=== PATIENT | female | born 2000 | race Caucasian/White ===

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

== ENCOUNTER 2025-06-22 03:12 | Emergency (ER) | payer MEDICAID ==
[~2025-06-22] VITALS: Ht 142.2 cm; Wt 68.2 kg
[~2025-06-22 03:12] MED LIST: ONDA4TAB6 PO
--- NOTE | 2025-06-22 03:29 | Physician Documentation ---
History of Present Illness ~ Chief Complaint: Abdominal Pain w/vomiting Stated Complaint: ABDOMINAL PAIN,VOMITING Time Seen by MD: 03:29 [facility] Patient presents to the emergency room with nausea vomiting diarrhea and abdominal pain. Two episodes of diarrhea. Symptoms began this evening. She has taken nothing for her symptoms. History of reflux. Patient's pain that has in the epigastric area. Medication Reconciliation Allergies: Coded Allergies: No Known Allergies (Unverified , 06/22/25) Scheduled Ondansetron Hcl (Zofran), 1 TAB PO Q6H PRN Past Medical History Past Medical History: MRSA Abscess Past Surgical History: noncontributory Alcohol Use: None Drug Use: none Lives with: Family Lives In: Home Occupation: employed Review of Systems ROS All review of systems negative except as per HPI Physical Exam Vital Signs: Temperature: 98.7, Source: Temporal, Heart Rate: 71, Respiratory Rate: 16, BP: 132/95, Pulse Oximetry: 100, Weight: 68.180 Oxygen Flow Rate: 0 Physical Exam General: Patient is awake, alert, oriented x4 in mild distress Head: Normocephalic and atraumatic. Eyes: Conjunctival normal. EOMI. PERRL. ENT: Mucous membranes moist. Neck: Supple, trachea is midline. Chest: Clear to auscultation bilaterally without rales, rhonchi, or wheezes. There is no accessory muscle use or retractions. Cardiac: RRR without murmurs, gallops, or rubs. Abd: Soft, nondistended, nontender, with normoactive bowel sounds. No guarding, rebound, or rigidity. Progress Results/Orders Results/Orders Orders - SEAN LOPEZ MD Urinalysis, Cult If Indicated (06/22/25 03:21) Completed Orders - SEAN LOPEZ MD Hcg, Ur Ql (06/22/25 03:21) Cbc/Diff (06/22/25 03:21) BMP (06/22/25 03:21) Lipase (06/22/25 03:21) CMP (06/22/25 03:21) Ondansetron Inj. (Zofran 4mg/2ml Vial) (06/22/25 03:35) Normal Saline 1000ml (0.9% Sodium Chlori (06/22/25 03:35) Ketorolac Trometh 15mg/Ml Vial (Toradol (06/22/25 03:35) Famotidine/Pf Iv Inj (Pepcid Iv Inj) (06/22/25 03:35) Pantoprazole 40mg Iv (Protonix 40mg Iv) (06/22/25 03:35) Procalcitonin (06/22/25 03:32) Medications Received in ER Medications (Trade) Dose Ordered Sig/Taylor Route PRN Reason Start Time Stop Time Status Last Admin Dose Admin (Zofran 4mg/2ml vial) 8 mg ONCE ONCE IV 06/22/25 03:35 06/22/25 03:36 DC 06/22/25 03:50 8 MG Sodium Chloride 1,000 ml @ 1,000 mls/hr ONCE ONCE IV 06/22/25 03:35 06/22/25 04:34 DC 06/22/25 03:50 1,000 MLS/HR (Toradol injection) 15 mg ONCE ONCE IV 06/22/25 03:35 06/22/25 03:36 DC 06/22/25 03:50 15 MG (Pepcid IV inj) 20 mg ONCE ONCE IV 06/22/25 03:35 06/22/25 03:36 DC 06/22/25 03:50 20 MG (Protonix 40mg IV) 40 mg ONCE ONCE IV 06/22/25 03:35 06/22/25 03:36 DC 06/22/25 03:50 40 MG Vital Signs 06/22/25 06/22/25 06/22/25 06/22/25 03:16 03:50 04:09 04:11 Temp 98.7 98.7 Pulse 71 59 Resp 16 16 16 B/P (MAP) 132/95 125/78 (94) Pulse Ox 100 100 O2 Flow Rate 0 0 06/22/25 04:24 Resp 16 Laboratory Tests Test 06/22/25 03:40 White Blood Count 9.6 Red Blood Count 4.79 Hemoglobin 14.0 Hematocrit 40.5 Mean Corpuscular Volume 84.6 Mean Corpuscular Hemoglobin 29.1 Mean Corpuscular Hemoglobin Concent 34.4 Red Cell Distribution Width 12.0 Platelet Count 281 Mean Platelet Volume 8.0 Neutrophils (%) (Auto) 79.3 H Lymphocytes (%) (Auto) 15.6 L Monocytes (%) (Auto) 4.7 Eosinophils (%) (Auto) 0.1 Basophils (%) (Auto) 0.3 Neutrophils # (Auto) 7.6 Lymphocytes # (Auto) 1.5 Monocytes # (Auto) 0.5 Eosinophils # (Auto) 0.0 Basophils # (Auto) 0.0 CBC Comment Urine HCG, Qualitative Negative Sodium Level 137 Potassium Level 3.9 Chloride Level 102 Carbon Dioxide Level 25.5 Anion Gap 10 Blood Urea Nitrogen 19 H Creatinine 0.58 Estimated GFR/1.73 m2 > 90 BUN/Creatinine Ratio 32.8 H Glucose Level 132 H Calcium Level 9.2 Total Bilirubin 0.4 Aspartate Amino Transf (AST/SGOT) 17 Alanine Aminotransferase (ALT/SGPT) 32 Alkaline Phosphatase 114 Total Protein 8.1 Albumin 4.1 Globulin 4.0 Albumin/Globulin Ratio 1.0 L Lipase 17 Procalcitonin < 0.05 Chemistry Comments Medical Decision Making Additional information obtaine: old records Findings Patient presents to the emergency room for evaluations vomiting and abdominal pain as per HPI. Differentials include but are not limited to viral syndrome, gastroenteritis, gastritis, cholecystitis, pancreatitis, intra-abdominal infection therefore emergent labs ordered. Patient has responded well to treatment and feels much better. Labs reassuring. We will treat her for gastritis. I do not feel patient requires CT scan or ultrasound as she is pain- free and I believe radiation exposure risk outweighs any benefit at this juncture. ER precautions discussed. Diff Dx GI Bleed:Consideration: Include: Blood loss anemia Diff Dx Pain:Considerations: Include: -Inevitable Diff Dx N/V/D:Considerations: Include: Dehydration Diff Dx Rectal:Considerations: Include: Fistula Departure Disposition: HOME / SELF CARE / HOMELESS Impression: Primary Impression: Acute gastritis Condition: Improved Discharge Instructions: Gastritis, Adult Referrals: NO PRIMARY CARE PROVIDER (PCP) Prescriptions Famotidine (Pepcid) 20 Mg Tablet 1 TAB PO Q12H for Reflux for 30 Days, #60 TAB 0 Refills Prov: SEAN LOPEZ MD 06/22/25 Ondansetron 8mg ODT (Ondansetron Odt) 8 Mg Tab.rapdis 1 TAB PO Q6H for nausea/vomiting for 3 Days, #12 TAB 0 Refills Prov: SEAN LOPEZ MD 06/22/25 Signature Scribe Signature: No scribe Attestation: The note accurately reflects work and decisions made by me.Sean Lopez MD 06/22/25 04:41 SEAN LOPEZ MD Jun 22, 2025 03:29
[2025-06-22] MEDS: ketorolac trometh 15mg/ml vial 15 MG/ML ML IV ONE (03:50)
[2025-06-22] MEDS: ondansetron/PF 4mg/2ml inj IV ONE (03:50)
[2025-06-22] MEDS: famotidine/PF 10 mg/ml inj IV ONE (03:50)
[2025-06-22] MEDS: normal saline 1000ml 1,000 ML IV ONE (03:50)
[2025-06-22 04:01] LABS: MEAN PLATELET VOLUME 8.0 FL (7.4-10.4); RED CELL DISTRIBUTION WIDTH 12.0 % (11.5-14.5); URINE HCG NEGATIVE (NEG)
[2025-06-22 04:12] LABS: CREATININE 0.58 MG/DL (0.40-0.90); TOTAL CARBON DIOXIDE 25.5 MMOL/L (24-32); eCRCL 87 ML/MIN; eGFR > 90 ML/MIN
[2025-06-22] MEDS ORDERED: FAMO-129 PO (04:41)
[2025-06-22] MEDS ORDERED: ONDA-245 PO (04:41)
[2025-06-22 05:01] VITALS: BP 115/77; PULSE 75; RESP 16; TEMP 98.7; O2SAT 100
[2025-06-22] MEDS ORDERED: MAG355OR18 PO (16:44)
[2025-06-22] MEDS ORDERED: SUCR1TAB PO (16:44)
== END 2025-06-22 05:02 | disposition home or self-care (01) ==
LOC: ER 03:12
DX: K29.00 Acute gastritis without bleeding (principal); Z86.14 Personal history of Methicillin resistant Staphylococcus aureus infection; Z79.899 Other long term (current) drug therapy
CPT/HCPCS: 36415; 80053; 81025; 83690; 84145; 85025; 96365; 96375; 99284; J1885; J2405; J2470; J3490; J7030

== ENCOUNTER 2025-06-22 13:38 | Emergency (ER) | payer MEDICAID ==
[~2025-06-22] VITALS: Ht 142.2 cm; Wt 68.2 kg
[~2025-06-22 13:38] MED LIST changes: +FAMO-129 PO; +ONDA-245 PO
[2025-06-22 14:05] VITALS: BP 119/75; PULSE 80; RESP 16; TEMP 97.8; O2SAT 99
--- NOTE | 2025-06-22 16:18 | Physician Documentation ---
History of Present Illness ~ Chief Complaint: Abdominal Pain Stated Complaint: ABD PAIN Time Seen by MD: 16:14 Primary Medical Doctor: [facility] HPI This is a 24-year-old female who presents with epigastric pain, patient was seen last night and diagnosed with gastritis, patient reported last night after medications complete resolution of symptoms though reports today the epigastric pain returned without vomiting or diarrhea. Medication Reconciliation Allergies: Coded Allergies: No Known Allergies (Unverified , 06/22/25) Scheduled Famotidine (Pepcid), 1 TAB PO Q12H Mag Hydrox/Al Hydrox/Simeth* (Maalox Advanced Suspension*), 20 ML PO Q8H Ondansetron 8mg ODT (Ondansetron Odt), 1 TAB PO Q6H Ondansetron Hcl (Zofran), 1 TAB PO Q6H PRN Sucralfate (Sucralfate), 1 TAB PO Q6H Past Medical History Past Medical History: MRSA Abscess Past Surgical History: noncontributory Alcohol Use: None Drug Use: none Lives with: Family Lives In: Home Occupation: employed Review of Systems ROS As stated above in the HPI, otherwise all systems are reviewed and negative. Physical Exam Vital Signs: Temperature: 97.8, Heart Rate: 80, Respiratory Rate: 16, BP: 119/75, Pulse Oximetry: 99, Weight: 68.180 Oxygen Flow Rate: 0 Physical Exam VITALS: Reviewed and as above. GENERAL: Alert, nontoxic appearing, no apparent distress. RESPIRATORY: No increased work of breathing, no respiratory distress, speaking in full clear sentences GI: Epigastric tenderness otherwise nontender to palpation, soft, no rebound, no guarding Progress Results/Orders Results/Orders Completed Orders - HANNAH TO RADIOLOGY INTERVENTIONAL PHYSICIAN Mag & Alum Hydrox/Simeth Susp (Maalox Or (06/22/25 16:20) Lidocaine 2% Viscous (Xylocaine 2% Visco (06/22/25 16:20) Sucralfate Tablet (Carafate Tablet) (06/22/25 16:20) Vital Signs 06/22/25 14:05 Temp 97.8 Pulse 80 Resp 16 B/P (MAP) 119/75 Pulse Ox 99 O2 Flow Rate 0 Medical Decision Making Additional information obtaine: old records Findings This 24-year-old female presented back to the emergency department with continued epigastric pain after being treated last night for gastritis with nausea vomiting diarrhea, patient has been treated last night with complete resolution of symptoms however epigastric pain returned, patient reports she has not eaten anything since being seen last night. I had a lengthy discussion with the patient with shared decision-making patient will defer further labs and imaging and we will treat with a GI cocktail with her being discharged to follow up with the primary care should symptoms continue, patient will be prescribed Maalox in addition to Pepcid. Patient provided home care instructions, return to care precautions, and follow up instructions which he verbalized understanding of. Diff Dx GI Bleed:Consideration: Include: Bleeding diathesis, Blood loss anemia, Carcinoma, Diverticulitis, Esophagitis, Gastritis, Mary-Abbott syndrome Diff Dx Pain:Considerations: Include: Bowel obstruction, Constipation, Gastritis/PUD, GI hemorrhage, Inflammatory BD Diff Dx N/V/D:Considerations: Include: Dehydration, DKA, PUD Diff Dx Rectal:Considerations: Unlikely: Fissure, Fistula, Foreign body, Impaction, Perirectal abscess, Rectal prolapse, Subcutaneous abscess, Thrombosed hemorrhoid, Ulcer, UTI, Other Departure Time of Disposition: 16:44 Disposition: 01 HOME / SELF CARE / HOMELESS Impression: Primary Impression: Acute gastritis Qualified Codes: K29.00 - Acute gastritis without bleeding Condition: Improved Discharge Instructions: Gastritis, Adult Additional Instructions: Your symptoms are consistent with uncomplicated gastritis, please use the prescribed medications to help with your symptoms, if these medications are not working please return to the emergency department. Continue to use your previously prescribed medications as well. Please follow up with your primary care provider in the next few days. Please return to the emergency department for any new or worsening concerning symptoms. Referrals: NO PRIMARY CARE PROVIDER (PCP) Prescriptions Sucralfate (Sucralfate) 1 Gram Tablet 1 TAB PO Q6H for 15 Days, #60 TAB 0 Refills Prov: HANNAH TO 06/22/25 Mag Hydrox/Al Hydrox/Simeth* (Maalox Advanced Suspension*) 200 Mg-200 Mg-20 Mg/5 Ml Oral.susp 20 ML PO Q8H for 14 Days, #840 ML Prov: HANNAH TO 06/22/25 Education Educated: Patient, Family Educated regarding: diagnosis, treatment, prognosis, need for follow up Signature Scribe Signature: No scribe Attestation: The note accurately reflects work and decisions made by me.MARCIA Moctezuma 06/23/25 01:21 HANNAH TO Jun 22, 2025 16:18
[2025-06-22] MEDS: LIDOcaine 2% Viscous 15ml cup MM ONE (16:40)
[2025-06-22] MEDS: mag hydrox/Alum hydrox/simeth 30ml oral suspension PO ONE (16:40)
[2025-06-22] MEDS ORDERED: MAG355OR18 PO (16:44)
[2025-06-22] MEDS ORDERED: SUCR1TAB PO (16:44)
== END 2025-06-22 16:56 | disposition home or self-care (01) ==
LOC: ER 13:38
DX: K29.00 Acute gastritis without bleeding (principal); Z86.14 Personal history of Methicillin resistant Staphylococcus aureus infection; Z79.899 Other long term (current) drug therapy
CPT/HCPCS: 99284